=== PATIENT | male | born 1990 | race Caucasian/White ===

== ENCOUNTER 2018-04-30 22:20 | Emergency (ER) | payer SELFPAY ==
[2018-04-30] MEDS ORDERED: LORAZEPAM 2 MG/ML SOL ONE ×2 (22:25→23:12)
[2018-04-30] MEDS ORDERED: HALOPERIDOL LACTATE 5 MG/ML SOL ONE (22:25)
[2018-04-30] MEDS ORDERED: LORAZEPAM 2 MG/ML SOL IM ONE ×2 (22:38→23:14)
[2018-04-30] MEDS ORDERED: HALOPERIDOL LACTATE 5 MG/ML SOL IM ONE (22:38)
[2018-04-30] MEDS ORDERED: SODIUM CHLORIDE 0.9% 1000ML 1,000 ML IV ONE (22:56)
[2018-04-30] MEDS ORDERED: LORAZEPAM 2 MG/ML SOL IV ONE (22:56)
[2018-04-30] MEDS ORDERED: THIAMINE 100 MG/ML 100 MG/ML SOL IV ONE (22:58)
[2018-04-30 23:14] LABS: BASOPHILS % (AUTO) 1 % (0-3); EOSINOPHILS % (AUTO) 2 % (0-9); HEMATOCRIT 48 % (39-53); HEMOGLOBIN 15.5 gm/dl (13.5-17.7); LYMPHOCYTES % (AUTO) 41.7 % (10-50); MEAN CORPUSCULAR HGB CONC 32.2 gm/dl (32.0-36.0); MEAN CORPUSCULAR VOLUME 87 fL (80-100); MONOCYTES % (AUTO) 7.7 % (0-12); NEUTROPHILS % (AUTO) 47.2 % (37-80)
[2018-04-30] MEDS ORDERED: THIAMINE 100 MG/ML 100 MG/ML SOL ONE (23:18)
[2018-04-30 23:20] LABS: ALBUMIN 3.8 gm/dl (3.4-5.0); ALKALINE PHOSPHATASE 109 IU/L (46-116); ALT 288 IU/L (14-63); AST 85 IU/L (15-37); BILIRUBIN,TOTAL 0.4 mg/dl (0.2-1.0); BLOOD UREA NITROGEN 12 mg/dl (7-18); CALCIUM 8.3 mg/dl (8.5-10.1); CARBON DIOXIDE 22.7 mEq/L (21-32); CHLORIDE 103 mMol/L (98-107); CREATININE 1.06 mg/dl (0.80-1.30); GLUCOSE 137 mg/dl (74-106); MAGNESIUM 1.9 mg/dl (1.8-2.4); POTASSIUM 3.4 mMol/L (3.5-5.1); SALICYLATE < 2.8 mg/dl (2.8-30.0); SODIUM 140 mMol/L (136-145); TOTAL PROTEIN 7.3 gm/dl (6.4-8.2)
[2018-04-30 23:24] LABS: ACETAMINOPHEN < 2 ug/ml (10-30); ALCOHOL 0.238 gm/dl (0.000-0.08)
[2018-04-30 23:25] LABS: AMPHETAMINES NEGATIVE (NEGATIVE); BARBITUATES NEGATIVE (NEGATIVE); BENZODIAZEPINES NEGATIVE (NEGATIVE); CANNABINOL(THC) NEGATIVE (NEGATIVE); COCAINE(COC) NEGATIVE (NEGATIVE); METHADONE NEGATIVE (NEGATIVE); METHAMPHETAMINES NEGATIVE (NEGATIVE); OPIATES(OPI) NEGATIVE (NEGATIVE); OXYCODONE(OXY) NEGATIVE (NEGATIVE); PROPOXYPHENE(PPX) NEGATIVE (NEGATIVE); TRICYCLIC ANTIDEPRESSANTS NEGATIVE (NEGATIVE)
[2018-04-30 23:32] VITALS: RESP 18; TEMP 97.2
[2018-05-01 07:28] VITALS: BP 115/62; PULSE 118; O2SAT 89
== END 2018-05-01 07:28 | disposition home or self-care (01) | DRG 897 ==
LOC: ED 22:20
DX: F10.129 Alcohol abuse with intoxication, unspecified (principal); E87.6 Hypokalemia
CPT/HCPCS: 80053; 80305; 80307; 83735; 85025; 96365; 96366; 96372; 96374; 99284; 99285; J1630; J2060; J3411

== ENCOUNTER 2018-08-26 09:11 | Emergency (ER) | payer SELFPAY ==
[2018-08-26 09:23] VITALS: RESP 20; TEMP 97.4; O2SAT 98
[2018-08-26 09:39] LABS: BASOPHILS % (AUTO) 1 % (0-3); EOSINOPHILS % (AUTO) 1 % (0-9); HEMATOCRIT 50 % (39-53); HEMOGLOBIN 16.2 gm/dl (13.5-17.7); MEAN CORPUSCULAR HEMOGLOBIN 28.9 pg (27.0-32.0); MEAN CORPUSCULAR HGB CONC 32.6 gm/dl (32.0-36.0); MEAN CORPUSCULAR VOLUME 89 fL (80-100); MONOCYTES % (AUTO) 7.2 % (0-12); NEUTROPHILS % (AUTO) 63.6 % (37-80)
[2018-08-26] MEDS ORDERED: SODIUM CHLORIDE 0.9% 1000ML 1,000 ML IV ONE (09:39)
[2018-08-26] MEDS ORDERED: ONDANSETRON HCL 4 MG/2 ML SOL IV ONE (09:40)
[2018-08-26] MEDS ORDERED: ONDANSETRON HCL 4 MG/2 ML SOL ONE (09:41)
[2018-08-26 09:53] LABS: ALBUMIN 3.9 gm/dl (3.4-5.0); BILIRUBIN,TOTAL 0.7 mg/dl (0.2-1.0); CALCIUM 8.9 mg/dl (8.5-10.1); CARBON DIOXIDE 27.5 mEq/L (21-32); CREATININE 1.06 mg/dl (0.80-1.30); POTASSIUM 3.7 mMol/L (3.5-5.1); TOTAL PROTEIN 7.4 gm/dl (6.4-8.2)
[2018-08-26 10:15] LABS: APPEARANCE,URINE Clear; BILIRUBIN,URINE NEGATIVE (NEGATIVE); COLOR,URINE Yellow; GLUCOSE, URINE (UA) NEGATIVE (NEGATIVE); KETONES,URINE NEGATIVE (NEGATIVE); LEUKOCYTE ESTERASE ,URINE NEGATIVE (NEGATIVE); NITRATE,URINE NEGATIVE (NEGATIVE); OCCULT BLOOD,URINE NEGATIVE (NEG-TRACE)
[2018-08-26 10:22] LABS: BACTERIA 1+ (< 1+); CRYSTALS NEGATIVE (0-3 AVE/HPF); RBC,URINE 0-2 (0-3AV/HPF)
[2018-08-26] MEDS ORDERED: PANTOPRAZOLE SODIUM 40 MG/10 ML PDS IV ONE (10:33)
[2018-08-26] MEDS ORDERED: PANTOPRAZOLE SODIUM 40 MG/10 ML PDS ONE (10:43)
[2018-08-26 14:51] VITALS: BP 132/67; PULSE 72
== END 2018-08-26 11:54 | disposition home or self-care (01) | DRG 392 ==
LOC: ED 09:11
DX: R11.2 Nausea with vomiting, unspecified (principal); R19.7 Diarrhea, unspecified
CPT/HCPCS: 80053; 81001; 85025; 96365; 96374; 96375; 99282; 99284; J2405

== ENCOUNTER 2018-10-22 10:12 | Emergency (ER) | payer BC ==
[2018-10-22 10:26] VITALS: RESP 16; TEMP 97.8
[2018-10-22 10:36] LABS: BASOPHILS % (AUTO) 1 % (0-3); EOSINOPHILS % (AUTO) 2 % (0-9); HEMATOCRIT 48 % (39-53); HEMOGLOBIN 16.2 gm/dl (13.5-17.7); LYMPHOCYTES % (AUTO) 30.1 % (10-50); MEAN CORPUSCULAR HEMOGLOBIN 29.4 pg (27.0-32.0); MEAN CORPUSCULAR HGB CONC 33.5 gm/dl (32.0-36.0); MEAN CORPUSCULAR VOLUME 88 fL (80-100); MONOCYTES % (AUTO) 6.1 % (0-12)
[2018-10-22 10:56] LABS: CALCIUM 8.4 mg/dl (8.5-10.1); CARBON DIOXIDE 23.1 mEq/L (21-32); CREATININE 0.74 mg/dl (0.80-1.30); THYROID STIMULATING HORMONE 0.671 uIU/ml (0.358-3.740)
[2018-10-22 10:58] LABS: ALCOHOL 0.229 gm/dl (0.000-0.08)
[2018-10-22] MEDS ORDERED: METOPROLOL TARTRATE 25 MG TAB ONE (11:06)
[2018-10-22 11:25] LABS: AMPHETAMINES NEGATIVE (NEGATIVE); BARBITUATES NEGATIVE (NEGATIVE); BENZODIAZEPINES NEGATIVE (NEGATIVE); CANNABINOL(THC) NEGATIVE (NEGATIVE); COCAINE(COC) NEGATIVE (NEGATIVE); METHADONE NEGATIVE (NEGATIVE); METHAMPHETAMINES NEGATIVE (NEGATIVE); OPIATES(OPI) NEGATIVE (NEGATIVE); OXYCODONE(OXY) NEGATIVE (NEGATIVE); PROPOXYPHENE(PPX) NEGATIVE (NEGATIVE); TRICYCLIC ANTIDEPRESSANTS NEGATIVE (NEGATIVE)
[2018-10-22 12:31] VITALS: BP 118/68; PULSE 90; O2SAT 97
== END 2018-10-22 11:29 | disposition left against medical advice (07) ==
LOC: ED 10:12
DX: F10.129 Alcohol abuse with intoxication, unspecified (principal); Y90.7 Blood alcohol level of 200-239 mg/100 ml; F41.8 Other specified anxiety disorders; F32.9 Major depressive disorder, single episode, unspecified; Z53.21 Procedure and treatment not carried out due to patient leaving prior to being seen by health care provider
CPT/HCPCS: 36415; 80048; 80305; 80307; 84443; 85025; 99283; 99284; 99285; A9270-GY

== ENCOUNTER 2018-10-22 17:00 | Emergency (ER) | payer BC | END 2018-10-23 00:29 | disposition short-term general hospital (02) | LOC: ED 10-23 00:29 ==

== ENCOUNTER 2018-12-06 18:54 | Emergency (ER) | payer BC ==
[2018-12-06 19:01] VITALS: TEMP 98.1
[2018-12-06] MEDS ORDERED: LIDOCAINE 1% W/EPI MPF 30 ML SOL ONE (19:09)
[2018-12-06 19:22] VITALS: RESP 16
[2018-12-06] MEDS ORDERED: LIDOCAINE HCL 1% 50 MG/5 ML SOL INFIL ONE (19:22)
[2018-12-06 19:36] VITALS: BP 113/88; PULSE 114; O2SAT 97
[2018-12-06] MEDS ORDERED: BACITRACIN 500 U/GM OIN TOP ONE (19:39)
[2018-12-06 20:17] LABS: BASOPHILS % (AUTO) 1 % (0-3); EOSINOPHILS % (AUTO) 4 % (0-9); HEMATOCRIT 46 % (39-53); HEMOGLOBIN 15.5 gm/dl (13.5-17.7); LYMPHOCYTES % (AUTO) 50.9 % (10-50); MEAN CORPUSCULAR HEMOGLOBIN 29.1 pg (27.0-32.0); MEAN CORPUSCULAR HGB CONC 33.5 gm/dl (32.0-36.0); MEAN CORPUSCULAR VOLUME 87 fL (80-100); NEUTROPHILS % (AUTO) 38.3 % (37-80)
[2018-12-06 20:43] LABS: BILIRUBIN,TOTAL 0.6 mg/dl (0.2-1.0); CALCIUM 8.1 mg/dl (8.5-10.1); CARBON DIOXIDE 26.4 mEq/L (21-32); CREATININE 0.96 mg/dl (0.80-1.30); THYROID STIMULATING HORMONE 1.581 uIU/ml (0.358-3.740)
[2018-12-06 20:48] LABS: APPEARANCE,URINE Clear; BILIRUBIN,URINE NEGATIVE (NEGATIVE); COLOR,URINE Yellow; GLUCOSE, URINE (UA) NEGATIVE (NEGATIVE); KETONES,URINE NEGATIVE (NEGATIVE); LEUKOCYTE ESTERASE ,URINE NEGATIVE (NEGATIVE); NITRATE,URINE NEGATIVE (NEGATIVE); OCCULT BLOOD,URINE NEGATIVE (NEG-TRACE); UROBILINOGEN,URINE 0.2 (0.2-1.0 EU)
[2018-12-06 20:59] LABS: AMPHETAMINES NEGATIVE (NEGATIVE); BACTERIA NEGATIVE (< 1+); BARBITUATES NEGATIVE (NEGATIVE); BENZODIAZEPINES NEGATIVE (NEGATIVE); CANNABINOL(THC) NEGATIVE (NEGATIVE); COCAINE(COC) NEGATIVE (NEGATIVE); CRYSTALS NEGATIVE (0-3 AVE/HPF); EPITHELIAL CELLS NEGATIVE (SQUAMOUS); METHADONE NEGATIVE (NEGATIVE); METHAMPHETAMINES NEGATIVE (NEGATIVE); OPIATES(OPI) NEGATIVE (NEGATIVE); OXYCODONE(OXY) NEGATIVE (NEGATIVE); PROPOXYPHENE(PPX) NEGATIVE (NEGATIVE); RBC,URINE NEG (0-3AV/HPF); TRICYCLIC ANTIDEPRESSANTS NEGATIVE (NEGATIVE); WBC,URINE NEG (0-5AV/HPF)
== END 2018-12-06 20:40 | disposition left against medical advice (07) ==
LOC: ED 18:54
DX: S61.011A Laceration without foreign body of right thumb without damage to nail, initial encounter (principal); W45.8XXA Other foreign body or object entering through skin, initial encounter; F10.929 Alcohol use, unspecified with intoxication, unspecified; Z53.21 Procedure and treatment not carried out due to patient leaving prior to being seen by health care provider
CPT/HCPCS: 12002; 36415; 80053; 80305; 81001; 84443; 85025; 99285; A6402; A9270-GY